=== PATIENT | male | born 1990 | race Caucasian/White ===

== ENCOUNTER 2016-09-03 18:08 | Emergency (ER) | payer OTHER ==
[2016-09-03 18:12] VITALS: TEMP 98.1
--- NOTE | 2016-09-03 19:39 | ED ---
Abdominal Pain HPI - General Chief Complaint: Abdominal Pain Stated Complaint: Hernia Time Seen by Provider: 09/03/16 19:15 Source: patient, RN notes reviewed Mode of arrival: ambulatory Limitations: no limitations - History of Present Illness Initial Comments: Patient is a 26-year-old male presents to the emergency room for evaluation of umbilical lump/pain. Patient states he noticed small lump forming over his umbilical area about 2 days ago. Patient states pain is worse whenever he makes a bowel movement or lifts heavy objects. Patient states he was working today and noticed that the lump was bulging over his umbilicus. Patient states he can't seem to reduce the lump. Patient states he thinks he has a hernia. Patient denies any previous hernias or surgeries on his abdomen. Patient states he hasn't followed up with a primary care provider in 10 years. Patient denies fevers or chills. Patient denies nausea or vomiting. Patient denies headache or dizziness. Patient denies chest pain shortness of breath. Patient denies any trouble making a bowel movement. - Related Data Previous Rx's Medication Instructions Recorded Ibuprofen [Motrin] 600 mg PO Q6HR PRN #20 tab 09/03/16 Allergies Allergy/AdvReac Type Severity Reaction Status Date / Time No Known Allergies Allergy Verified 09/03/16 19:46 Review of Systems ROS Statement: Those systems with pertinent positive or pertinent negative responses have been documented in the HPI. ROS Other: All systems not noted in ROS Statement are negative. Past Medical History Past Medical History: No Reported History History of Any Multi-Drug Resistant Organisms: None Reported Past Surgical History: No Surgical Hx Reported Past Psychological History: ADD/ADHD, Depression Smoking Status: Current every day smoker Past Alcohol Use History: Occasional Past Drug Use History: Marijuana General Exam - General Exam Comments Initial Comments: Laying in exam room, no acute distress. Limitations: no limitations General appearance: alert, in no apparent distress Head exam: Present: atraumatic, normocephalic, normal inspection Eye exam: Present: normal appearance ENT exam: Present: normal exam Neck exam: Present: normal inspection Respiratory exam: Present: normal lung sounds bilaterally. Absent: respiratory distress Cardiovascular Exam: Present: regular rate, normal rhythm, normal heart sounds GI/Abdominal exam: Present: soft, normal bowel sounds, hernia (Palpable umbilical hernia. No erythema or heat.). Absent: distended, guarding, rebound , rigid Extremities exam: Present: normal inspection Back exam: Present: normal inspection Neurological exam: Present: alert, oriented X3, CN II-XII intact, normal gait Psychiatric exam: Present: normal affect, normal mood Skin exam: Present: warm, dry, intact, normal color. Absent: rash Course Vital Signs 09/03/16 09/03/16 18:10 21:32 Temperature 98.1 F Pulse Rate 88 76 Respiratory 20 18 Rate Blood Pressure 128/62 129/60 O2 Sat by Pulse 99 100 Oximetry - Reevaluation(s) Reevaluation #1: 09/03/16 19:39 Unable to manually reduce the umbilical hernia. Patient placed in Trendelenburg with ice pack placed over the area, will recheck patient in about 20 minutes. Reevaluation #2: 09/03/16 20:01 Patient reevaluated, still unable to reduce umbilical hernia. Will order labs and abdominal x-ray. Reevaluation #3: 09/03/16 21:00 Labs reviewed, no acute findings. Able to reduce umbilical hernia. Patient denying any pain at the moment. Patient will be sent home with general surgery follow-up. Medical Decision Making - Medical Decision Making Patient is a 26-year-old male presents emergency room for evaluation of the local hernia. Was able to reduce umbilical hernia. Lab work shows no significant findings. Case discussed with Dr. Jaramillo who also evaluated patient. Patient was given follow-up for general surgery. Return parameters discussed. - Lab Data Result diagrams: 09/03/16 20:15 09/03/16 20:15 Lab Results 09/03/16 09/03/16 Range/Units 20:15 20:15 WBC 7.7 (3.8-10.6) k/uL RBC 4.61 (4.30-5.90) m/uL Hgb 14.3 (13.0-17.5) gm/dL Hct 40.3 (39.0-53.0) % MCV 87.3 (80.0-100.0) fL MCH 31.1 (25.0-35.0) pg MCHC 35.6 (31.0-37.0) g/dL RDW 12.2 (11.5-15.5) % Plt Count 283 (150-450) k/uL Neutrophils % 60 % Lymphocytes % 28 % Monocytes % 6 % Eosinophils % 3 % Basophils % 1 % Neutrophils # 4.6 (1.3-7.7) k/uL Lymphocytes # 2.1 (1.0-4.8) k/uL Monocytes # 0.5 (0-1.0) k/uL Eosinophils # 0.2 (0-0.7) k/uL Basophils # 0.1 (0-0.2) k/uL Sodium 139 (137-145) mmol/L Potassium 4.0 (3.5-5.1) mmol/L Chloride 103 (98-107) mmol/L Carbon Dioxide 24 (22-30) mmol/L Anion Gap 12 mmol/L BUN 16 (9-20) mg/dL Creatinine 1.00 (0.66-1.25) mg/dL Est GFR (MDRD) Af Amer >60 (>60 ml/min/1.73 sqM) Est GFR (MDRD) Non-Af >60 (>60 ml/min/1.73 sqM) Glucose 80 (74-99) mg/dL Calcium 9.4 (8.4-10.2) mg/dL Total Bilirubin 0.5 (0.2-1.3) mg/dL AST 20 (17-59) U/L ALT 27 (21-72) U/L Alkaline Phosphatase 54 (38-126) U/L Total Protein 7.2 (6.3-8.2) g/dL Albumin 4.1 (3.5-5.0) g/dL - Radiology Data Radiology results: report reviewed, image reviewed Disposition Clinical Impression: Umbilical hernia Disposition: HOME SELF-CARE Condition: Good Instructions: Umbilical Hernia (ED) Additional Instructions: Take Tylenol or Motrin as needed for pain. Please follow up with general surgeon. If any new symptom arises or symptoms worsen, return to ER as soon as possible. Prescriptions: Ibuprofen [Motrin] 600 mg PO Q6HR PRN #20 tab PRN Reason: Pain Referrals: Princess Drake DO [Doctor of Osteopathic Medicine] - 1-2 days Time of Disposition: 21:00
[2016-09-03] MEDS ORDERED: KETOROLAC 30 MG/ML 1 ML VIAL IVP STA (20:00)
--- NOTE | 2016-09-03 20:36 | XR ---
EXAMINATION TYPE: XR abdomen 2V DATE OF EXAM: 09/03/2016 8:31 PM COMPARISON: 05/04/2012 INDICATION: Pain TECHNIQUE: Single view abdomen upright view FINDINGS: There is a normal bowel gas pattern. Psoas margins are normal. No organomegaly is present. IMPRESSION: 1. Unremarkable Abdomen
[2016-09-03 20:41] LABS: Basophils # (A) 0.1 k/uL (0-0.2); Basophils % (A) 1 %; CHCM 35.6; Eosinophils # (A) 0.2 k/uL (0-0.7); Eosinophils % (A) 3 %; HCT 40.3 % (39.0-53.0); HDW 2.67; HGB 14.3 gm/dL (13.0-17.5); Luc % (Auto) 3; Lymphocytes # (A) 2.1 k/uL (1.0-4.8); Lymphocytes % (A) 28 %; MCH 31.1 pg (25.0-35.0); MCHC 35.6 g/dL (31.0-37.0); MCV 87.3 fL (80.0-100.0); Mean Platelet Volume 6.6; Monocytes # (A) 0.5 k/uL (0-1.0); Monocytes % (A) 6 %; Neutrophils # (A) 4.6 k/uL (1.3-7.7); Neutrophils % (A) 60 %; RBC 4.61 m/uL (4.30-5.90); RDW 12.2 % (11.5-15.5); WBC 7.7 k/uL (3.8-10.6); WBC (Perox) 7.64
[2016-09-03 20:52] LABS: ALT 27 U/L (21-72); AST 20 U/L (17-59); Alkaline Phosphatase 54 U/L (38-126); Anion Gap 12 mmol/L; Blood Urea Nitrogen 16 mg/dL (9-20); Calcium 9.4 mg/dL (8.4-10.2); Carbon Dioxide 24 mmol/L (22-30); Chloride 103 mmol/L (98-107); Glucose 80 mg/dL (74-99); Non-African American GFR(MDRD) >60 (>60 ml/min/1.73 sqM); Sodium 139 mmol/L (137-145); Total Bilirubin 0.5 mg/dL (0.2-1.3); Total Protein 7.2 g/dL (6.3-8.2)
[2016-09-03 21:34] VITALS: BP 129/60; PULSE 76; RESP 18
== END 2016-09-03 21:32 | disposition home or self-care (01) ==
LOC: EC 18:08
DX: K42.9 Umbilical hernia without obstruction or gangrene (principal); F17.200 Nicotine dependence, unspecified, uncomplicated
CPT/HCPCS: 36415; 80053; 85025; 74020; 99284; 96374; J1885

== ENCOUNTER → 2017-06-06 | Outpatient (CLI) | payer OTHER ==
--- NOTE | 2017-06-07 06:27 | MR ---
EXAMINATION TYPE: MR brain wo con DATE OF EXAM: 06/06/2017 COMPARISON: CT brain March 12, 1996 HISTORY: Chronic intractable headache per order. Headaches and\is per patient. TECHNIQUE: Multiplanar, multisequence imaging of the brain and brainstem is performed without IV cont rast. FINDINGS: Diffusion weighted images demonstrate no evidence of a recent infarct or other diffusion abnormality. There is no extraaxial fluid collection or significant white matter signal abnormality. The ventricu lar system and cisternal spaces are normal in size and appearance. The brain volume is age appropria te. Midline structures demonstrate normal morphology. The craniocervical junction appears within normal limits. Normal vascular flow voids are present. There is mild mucosal thickening involving ethmoid si nuses bilaterally and mild mucosal thickening involving inferior maxillary sinuses bilaterally otherw ise paranasal sinuses are clear. The globes are intact bilaterally. IMPRESSION: Mild chronic paranasal sinus disease otherwise unremarkable study.
== END | disposition home or self-care (01) ==
LOC: RADMRIMAIN 19:10
PROVIDERS: ATTEND Family Medicine
DX: R51 Headache (principal)
CPT/HCPCS: 70551

== ENCOUNTER 2021-06-13 17:07 | Emergency (ER) | payer BC, OTHER ==
[2021-06-13 18:13] VITALS: BP 133/75; PULSE 64; RESP 20; TEMP 98
--- NOTE | 2021-06-13 19:41 | ED ---
General Adult HPI - General Chief complaint: Upper Respiratory Infection Stated complaint: Covid test Time Seen by Provider: 06/13/21 19:25 Source: patient, RN notes reviewed, old records reviewed Mode of arrival: ambulatory Limitations: no limitations - History of Present Illness Initial comments: Patient is a 30-year-old male withpast medical history presents emergency department requesting COVID-19 swab. He is having a breast her symptoms, runny nose and mild cough. Nausea was breath, chest pain, nausea, vomiting, diarrhea. His no other acute findings at this time. He has girlfriend both have similar symptoms and they're concerned for possible COVID-19 infection. He is not vaccinated for COVID-19. - Related Data Previous Rx's Medication Instructions Recorded Ibuprofen [Motrin] 600 mg PO Q6HR PRN #20 tab 09/03/16 Albuterol Inhaler [Ventolin Hfa 1 puff INHALATION RT-QID #8 gm 06/13/21 Inhaler] Allergies Allergy/AdvReac Type Severity Reaction Status Date / Time No Known Allergies Allergy Verified 06/13/21 18:10 Review of Systems ROS Statement: Those systems with pertinent positive or pertinent negative responses have been documented in the HPI. Review of Systems: CONST: Denies fever EYES: Denies blurry vision ENT: Endorses nasal congestion C/V: Denies Chest pain RESP: Denies shortness of breath GI: Denies abdominal pain : Denies dysuria SKIN: Denies rash. MSK: Denies joint pain. NEURO: Denies headache ROS Other: All systems not noted in ROS Statement are negative. Past Medical History Past Medical History: No Reported History History of Any Multi-Drug Resistant Organisms: None Reported Past Surgical History: No Surgical Hx Reported Past Psychological History: ADD/ADHD, Depression Smoking Status: Current every day smoker Past Alcohol Use History: Occasional Past Drug Use History: Marijuana General Exam - General Exam Comments Initial Comments: General: Appears in no acute distress. HEAD: Normal with no signs of head trauma. EYES: EOMI ENT: Hearing grossly intact RESPIRATORY: No respiratory distress C/V: Regular rate and rhythm ABD: Abdomen is nondistended EXT: No obvious deformity SKIN: No rashes or lesions observed on exposed skin. NEURO: Alert and oriented Limitations: no limitations Course Vital Signs 06/13/21 06/13/21 18:10 19:34 Temperature 98.0 F Pulse Rate 64 Respiratory 20 20 Rate Blood Pressure 133/75 O2 Sat by Pulse 99 Oximetry Medical Decision Making - Medical Decision Making Based on patient's presentation and physical exam, I'm concerned for COVID-19 infection. Patient was swabbed in triage and was found to be positive. He is not hypoxic has no acute respiratory distress. I do not believe that further laboratory studies or imaging is required. I did discuss quarantine with the patient, as well as use of [id number] vitamin C and zinc. use albuterol inhalers as needed. Recommended obtain a pulse ox to monitor oxygen saturation saturations. Return to the emergency department if worsening symptoms. Patient was in agreement this plan. I will provide the patient with a prescription for albuterol. I instructed the patient to follow up with their PCP in the next 3 days. I provided contact information for follow up with Dr. Rubi. I explained that the patient should return to the emergency department if they experience any worsening symptoms. Strict return precautions were discussed with the patient. The patient expressed understanding of these instructions. I answered all questions that the patient had. The patient was discharged home in good condition with their prescriptions and follow up information. - Lab Data Lab Results 06/13/21 Range/Units 18:13 Coronavirus (PCR) Detected A (Not Detectd) Disposition Clinical Impression: COVID-19 virus infection Disposition: HOME SELF-CARE Condition: Good Instructions (If sedation given, give patient instructions): Coronavirus Disease 2019 (COVID-19) Additional Instructions: You're positive for COVID-19 infection. Please quarantine at least 5 days, and recommend at least waiting 2 days until symptom-free before returning to work. Monitor for worsening symptoms and return to the emergency Department as needed. Prescriptions: Albuterol Inhaler [Ventolin Hfa Inhaler] 1 puff INHALATION RT-QID #8 gm Is patient prescribed a controlled substance at d/c from ED?: No Referrals: None,Stated [Primary Care Provider] - 1-2 days Baron Rubi MD [STAFF PHYSICIAN] - 1-2 days
== END 2021-06-13 19:52 | disposition home or self-care (01) ==
LOC: EC 17:07
DX: U07.1 COVID-19 (principal); F17.200 Nicotine dependence, unspecified, uncomplicated
CPT/HCPCS: 87635; 99284

== ENCOUNTER 2021-06-20 11:20 | Emergency (ER) | payer BC, OTHER ==
[2021-06-20 11:43] VITALS: BP 128/80; PULSE 72; RESP 18; TEMP 97.6
--- NOTE | 2021-06-20 12:37 | ED ---
General Adult HPI - General Chief complaint: Recheck/Abnormal Lab/Rx Stated complaint: revisit - Covid test, headache, chest pain Time Seen by Provider: 06/20/21 11:45 Source: patient Mode of arrival: ambulatory Limitations: no limitations - History of Present Illness Initial comments: 30-year-old male presents to the emergency room for a [place] test. Patient states he needs a COVID-19 test to go back to work. States it is his ten-day alisa now. Patient had a positive test last week. Patient states his taste is back but he still has a cough and feels fatigued. Chest pain only when coughing. No shortness of breath. He does have a mild headache as well. He is not vaccinated.Patient has no other complaints at this time including shortness of breath, chest pain, abdominal pain, nausea or vomiting, or visual changes. - Related Data Previous Rx's Medication Instructions Recorded Ibuprofen [Motrin] 600 mg PO Q6HR PRN #20 tab 09/03/16 Albuterol Inhaler [Ventolin Hfa 1 puff INHALATION RT-QID #8 gm 06/13/21 Inhaler] Allergies Allergy/AdvReac Type Severity Reaction Status Date / Time No Known Allergies Allergy Verified 06/20/21 11:43 Review of Systems ROS Statement: Those systems with pertinent positive or pertinent negative responses have been documented in the HPI. ROS Other: All systems not noted in ROS Statement are negative. Past Medical History Past Medical History: No Reported History History of Any Multi-Drug Resistant Organisms: None Reported Past Surgical History: Hernia Repair Past Psychological History: ADD/ADHD, Depression Smoking Status: Current every day smoker Past Alcohol Use History: Occasional Past Drug Use History: Marijuana General Exam Limitations: no limitations General appearance: alert, in no apparent distress Head exam: Present: atraumatic Eye exam: Present: normal appearance, PERRL, EOMI. Absent: scleral icterus, conjunctival injection ENT exam: Present: normal exam, mucous membranes moist Neck exam: Present: normal inspection, full ROM. Absent: tenderness Respiratory exam: Present: normal lung sounds bilaterally. Absent: respiratory distress, wheezes Cardiovascular Exam: Present: regular rate, normal rhythm, normal heart sounds GI/Abdominal exam: Present: soft, normal bowel sounds. Absent: distended, tenderness Neurological exam: Present: alert Course Vital Signs 06/20/21 11:39 Temperature 97.6 F Pulse Rate 72 Respiratory 18 Rate Blood Pressure 128/80 O2 Sat by Pulse 100 Oximetry Medical Decision Making - Medical Decision Making Lab test negative for COVID-19. - Lab Data Lab Results 06/20/21 Range/Units 12:00 Coronavirus (PCR) Not Detected (Not Detectd) Disposition Clinical Impression: Lab test negative for COVID-19 virus Disposition: HOME SELF-CARE Condition: Good Instructions (If sedation given, give patient instructions): Coronavirus Disease 2019 (COVID-19) Additional Instructions: Follow-up with your doctor in one to 2 days. Return to the emergency room for any worsening symptoms. Is patient prescribed a controlled substance at d/c from ED?: No Referrals: Valencia Quigley MD [STAFF PHYSICIAN] - 1-2 days Time of Disposition: 13:40
== END 2021-06-20 13:57 | disposition home or self-care (01) ==
LOC: EC 11:20
DX: Z20.822 Contact with and (suspected) exposure to COVID-19 (principal); F17.200 Nicotine dependence, unspecified, uncomplicated
CPT/HCPCS: 87635